=== PATIENT | female | born 1995 | race African-American/Black ===

== ENCOUNTER 2022-04-01 16:31 | Emergency (ER) | payer OTHER ==
[~2022-04-01] VITALS: Ht 172.7 cm; Wt 118.0 kg
[2022-04-01] MEDS ORDERED: DILTIAZEM HCL 5MG/ML 5ML VIAL IV ONE (18:00)
[2022-04-01 18:14] LABS: BASOPHILS % 0.4 % (0.0-2.0); EOSINOPHILS % 2.5 % (0.0-5.0); HEMOGLOBIN. 13.4 g/dL (12.0-16.0); LYMPHOCYTES % 21.9 % (20.0-50.0); MEAN CORPUSCULAR HEMOGLOBIN 32.4 pg (28.0-32.0); MEAN CORPUSCULAR VOLUME 96.9 fL (81.0-99.0); MEAN PLATELET VOLUME 9.9 fl (7.4-10.4); MONOCYTES % 6.4 % (2.0-8.0); NEUTROPHILS % 68.8 % (40.0-76.0); PLATELET 281 x1000/uL (130-400); RED BLOOD CELL COUNT 4.13 mill/uL (4.2-5.4); RED CELL DISTRIBUTION WIDTH 13.4 % (11.6-14.6)
[2022-04-01 18:17] LABS: CHLORIDE 110 mEq/L (98-107)
[2022-04-01 18:35] LABS: HCG SCREEN POSITIVE
[2022-04-01] MEDS ORDERED: POTASSIUM CHLORIDE 20MEQ TABLET SR PO NR (19:30)
[2022-04-01] MEDS ORDERED: POTASSIUM CHLORIDE INJ 40 MEQ in DEXT 5% WATER 250 ML IV ONE (20:15)
[2022-04-01 20:47] LABS: PHOSPHORUS 1.8 mg/dL (2.5-4.9)
[2022-04-01 20:52] LABS: *AMPHETAMINES SCREEN URINE NEGATIVE (NEGATIVE); *BARBITURATES SCREEN URINE NEGATIVE (NEGATIVE); *BENZODIAZEPINES SCREEN URINE NEGATIVE (NEGATIVE); *COCAINE SCREEN URINE NEGATIVE (NEGATIVE); CANNABINOID URINE SCREEN NEGATIVE (NEGATIVE); METHADONE URINE SCREEN NEGATIVE (NEGATIVE); OPIATES URINE SCREEN NEGATIVE (NEGATIVE); PHENCYCLIDINE URINE SCREEN NEGATIVE (NEGATIVE)
[2022-04-01] MEDS: KCL 20MEQ/100ML X 2 FOR TOTAL KCL 40MEQ/200ML IV SCH ×2 (21:29→23:30)
[2022-04-01] MEDS ORDERED: POTASSIUM PHOS,M-BASIC-D-BASIC 30 MMOL in DEXT 5% WATER 500 ML IV SCH (22:30)
[2022-04-01] MEDS ORDERED: DILTIAZEM HCL 5MG/ML 5ML VIAL IV NR (23:00)
[2022-04-02 02:00] VITALS: BP 105/69
== END 2022-04-02 04:50 | disposition short-term general hospital (02) ==
LOC: ER 16:31 → CANBEDREQ 04-02 02:53 → ER 04-02 04:50
DX: I47.1 Supraventricular tachycardia (principal); I48.92 Unspecified atrial flutter; E87.6 Hypokalemia; R55 Syncope and collapse; R07.9 Chest pain, unspecified; J45.909 Unspecified asthma, uncomplicated; Z20.822 Contact with and (suspected) exposure to COVID-19
CPT/HCPCS: 36415; 71045; 76856; 80053; 80305; 83605; 83735; 83880; 84100; 84484; 84702; 84703; 85025; 87426; 93005; 96365; 96366; 96368; 96375; 96376; 99291; C9803; J3480; J3490; J7060